=== PATIENT | male | born 1960 | race Caucasian/White ===

== ENCOUNTER 2017-11-19 11:23 | Emergency (ER) | payer OTHER ==
[2017-11-19] MEDS ORDERED: Albuterol-Ipratrop 3 mg / 0.5 (3 ml) UD ONE (11:36)
[2017-11-19 11:46] VITALS: RESP 20; TEMP 97.9
[2017-11-19] MEDS ORDERED: Albuterol-Ipratrop 3 mg / 0.5 (3 ml) UD INH STA ×2 (11:59)
[2017-11-19 13:07] VITALS: BP 130/75; PULSE 75; O2SAT 98
--- NOTE | 2017-11-19 14:02 | C.PDOC ---
History Of Present Illness 57 year old male presents to the emergency department with complaints of typical asthmatic symptoms for the last 10-14 days. Patient was taking Albuterol (MDI) with little relief. Patient has an occasional dry cough but denies fever. Chief Complaint (Nursing): Shortness Of Breath History Per: Patient History/Exam Limitations: no limitations Onset/Duration Of Symptoms: Days (10-14) Current Symptoms Are (Timing): Still Present Current Respiratory Medications: Albuterol Past Medical History Reviewed: Historical Data, Nursing Documentation, Vital Signs Vital Signs: Last Vital Signs Temp 97.9 F 11/19/17 11:41 Pulse 75 11/19/17 13:06 Resp 20 11/19/17 13:06 BP 130/75 11/19/17 13:06 Pulse Ox 98 11/19/17 15:13 - Medical History PMH: Asthma, HTN, Hypercholesterolemia Denies: Chronic Kidney Disease Surgical History: Appendectomy, Cholecystectomy Family History: States: No Known Family Hx - Social History Hx Tobacco Use: No Hx Alcohol Use: No Hx Substance Use: No - Immunization History Hx Tetanus Toxoid Vaccination: No Hx Influenza Vaccination: No Hx Pneumococcal Vaccination: Yes (2016) Review Of Systems Except As Marked, All Systems Reviewed And Found Negative. Constitutional: Negative for: Fever Respiratory: Positive for: Cough (occasional dry cough), Shortness of Breath Physical Exam - Physical Exam Cardiovascular: Rhythm Regular Respiratory: Wheezing (mild respiratory wheeze with good air entry. ) Gastrointestinal/Abdominal: Normal Exam, Soft, No Tenderness Extremity: Normal ROM ED Course And Treatment O2 Sat by Pulse Oximetry: 98 (RA) Pulse Ox Interpretation: Normal - Radiology CXR: Viewed By Me, Read By Radiologist Medical Decision Making Medical Decision Making: Plan: CXR Two-Views Duoneb 3ml INH Prednisone 60mg PO Dispo: Patient functions (such as talking) were checked before being discharged. CXR Impression: Ocal opacity at the left lower lung may represent atelectasis or pneumonia. Disposition - [facility] - Disposition: HOME/ ROUTINE Disposition Time: 12:40 Condition: IMPROVED Additional Instructions: Thank you for letting us take care of you today. The emergency medical care you received today was directed at your acute symptoms. If you were prescribed any medication, please fill it and take as directed. It may take several days for your symptoms to resolve. Return to the Emergency Department if your symptoms worsen, do not improve, or if you have any other problems. Please contact your doctor or call one of the physicians/clinics you have been referred to that are listed on the Patient Visit Information form that is included in your discharge packet. Bring any paperwork you were given at discharge with you along with any medications you are taking to your follow up visit. Our treatment cannot replace ongoing medical care by a primary care provider (PCP) outside of the emergency department. Thank you for allowing the [facility] team to be part of your care today. Follow up with your primary doctor in 2-3 days for re-evaluation and further management. Prescriptions: Albuterol 0.083% [Albuterol 0.083% Inhal Fidelia (2.5 mg/3 ml) UD] 2.5 mg IH Q6 PRN #1 neb PRN Reason: asthma predniSONE [Prednisone] 40 mg PO DAILY #10 tab Instructions: Asthma, Adult (DC) Forms: [employer] (Wallisian) - Clinical Impression Clinical Impression: Asthma - Scribe Statement The provider has reviewed the documentation as recorded by the Scribe (Jose Peters) Provider Attestation: All medical record entries made by the Scribe were at my direction and personally dictated by me. I have reviewed the chart and agree that the record accurately reflects my personal performance of the history, physical exam, medical decision making, and the department course for this patient. I have also personally directed, reviewed, and agree with the discharge instructions and disposition.
--- NOTE | 2017-11-19 14:26 | RAD ---
HISTORY: cough COMPARISON: Comparison is made to 10/07/2015 TECHNIQUE: Chest PA and lateral FINDINGS: LUNGS: Focal opacity at the left lower lung may represent atelectasis or pneumonia. PLEURA: No significant pleural effusion identified. No pneumothorax apparent. CARDIOVASCULAR: Normal. OSSEOUS STRUCTURES: No significant abnormalities. VISUALIZED UPPER ABDOMEN: Normal. OTHER FINDINGS: None. IMPRESSION: Ocal opacity at the left lower lung may represent atelectasis or pneumonia.
== END 2017-11-19 13:07 | disposition home or self-care (01) ==
LOC: C.ER 11:23
DX: J45.909 Unspecified asthma, uncomplicated (principal); Z87.891 Personal history of nicotine dependence

== ENCOUNTER 2018-08-30 15:00 | Emergency (ER) | payer OTHER ==
[2018-08-30 15:14] VITALS: TEMP 98.3
[2018-08-30] MEDS ORDERED: Albuterol-Ipratrop 3 mg / 0.5 (3 ml) UD ONE ×2 (15:20→15:40)
[2018-08-30 15:32] VITALS: RESP 20
[2018-08-30] MEDS ORDERED: MethylPREDNISolone 40 mg Vial IM STA (15:34)
[2018-08-30] MEDS: Albuterol-Ipratrop 3 mg / 0.5 (3 ml) UD IH SCH (15:41)
--- NOTE | 2018-08-30 16:11 | RAD ---
HISTORY: SOB, wheezing. COMPARISON: Chest x-ray performed 11/19/17 TECHNIQUE: Chest PA and lateral FINDINGS: LUNGS: No focal consolidation. Please note that chest x-ray has limited sensitivity for the detection of pulmonary masses. PLEURA: No significant pleural effusion identified. No definite pneumothorax . CARDIOVASCULAR: Heart size appears within normal limits. No atherosclerotic calcification present. OSSEOUS STRUCTURES: Degenerative changes. VISUALIZED UPPER ABDOMEN: Unremarkable. OTHER FINDINGS: None. IMPRESSION: No focal consolidation.
--- NOTE | 2018-08-30 16:21 | C.PDOC ---
Time Seen by Provider: 08/30/18 15:26 Chief Complaint (Nursing): Shortness Of Breath History Per: Patient Onset/Duration Of Symptoms: Days (12) Current Symptoms Are (Timing): Still Present Current Respiratory Medications: See Home Med List Severity: Moderate Associated Symptoms: denies: Bloody Cough, Leg/Calf Pain, Ankle/Leg Swelling Reports Recently: Treated By A Physician Additional History Per: Prior Records Past Medical History Reviewed: Historical Data, Nursing Documentation, Vital Signs Vital Signs: Last Vital Signs Temp 98.3 F 08/30/18 15:12 Pulse 95 H 08/30/18 15:12 Resp 20 08/30/18 15:29 BP 128/87 08/30/18 15:12 Pulse Ox 98 08/30/18 15:12 - Medical History PMH: Asthma, HTN, Hypercholesterolemia Surgical History: Appendectomy, Cholecystectomy Family History: States: Unknown Family Hx - Social History Hx Tobacco Use: No Hx Alcohol Use: No Hx Substance Use: No - Immunization History Hx Tetanus Toxoid Vaccination: No Hx Influenza Vaccination: No Hx Pneumococcal Vaccination: Yes (2015) Review Of Systems Except As Marked, All Systems Reviewed And Found Negative. Constitutional: Negative for: Fever, Weakness ENT: Negative for: Throat Pain Respiratory: Positive for: Sputum, Wheezing. Negative for: Pleuritic Pain Gastrointestinal: Negative for: Vomiting, Abdominal Pain Musculoskeletal: Negative for: Neck Pain, Back Pain, Leg Pain Skin: Negative for: Rash Neurological: Negative for: Weakness, Numbness Physical Exam - Physical Exam Appears: Non-toxic, No Acute Distress Skin: Normal Color, Warm, Dry, No Rash Head: Atraumatic, Normacephalic Eye(s): bilateral: Normal Inspection, PERRL, EOMI Neck: Normal ROM, Supple Cardiovascular: Rhythm Regular Respiratory: No Accessory Muscle Use, Wheezing (diffuse, expiratory) Gastrointestinal/Abdominal: Soft, No Tenderness Extremity: Normal ROM, No Pedal Edema, No Calf Tenderness Neurological/Psych: Oriented x3, Normal Speech, Normal Motor, Normal Sensation ED Course And Treatment O2 Sat by Pulse Oximetry: 98 Pulse Ox Interpretation: Normal - Radiology CXR: Viewed By Me, Read By Radiologist CXR Interpretation: Yes: No Acute Disease. No: Infiltrates, Cardiomegaly Progress Note: After Solu-Medrol IM and Duoneb x 2. Lungs clear. No SOB. Reassessment Condition: Improved Progress - Interventions Interventions:: Observation - Medications Administered Inhaled nebulized: Anticholinergic, Beta-2 agonist Intravenous: Corticosteroid (IM) - Data Reviewed Data Reviewed: Diagnostic imaging, Old records - Patient Status Patient status: Mostly improved - Continuity of Care Discussed patient case with:: Patient, Family-HIPPA compliant, ED Nurse - Patient Plan Patient Plan: Discharge, F/U with PCP, Continue present meds Disposition Counseled Patient/Family Regarding: Studies Performed, Diagnosis, Need For Followup, Rx Given - Disposition Disposition: HOME/ ROUTINE Disposition Time: 16:23 Condition: IMPROVED Additional Instructions: Follow up with your doctor. Return to the ER if you develops chest pain, shortness of breath, worsening of symptoms or if you have any other concerns. Prescriptions: Albuterol Sulfate [Ventolin Hfa] 2 puff IH Q4 PRN #1 unit PRN Reason: Wheezing predniSONE [predniSONE Tab] 2 tab PO DAILY #10 tab Instructions: Asthma, Adult (DC) - Clinical Impression Clinical Impression: Asthma exacerbation
[2018-08-30 16:35] VITALS: BP 162/89; PULSE 81; O2SAT 95
== END 2018-08-30 16:35 | disposition home or self-care (01) ==
LOC: C.ER 15:00
DX: J45.901 Unspecified asthma with (acute) exacerbation (principal)
CPT/HCPCS: 71046; 96372; 99284; J2920